=== PATIENT | female | born 1975 | race Caucasian/White ===

== ENCOUNTER → 2018-01-30 | Outpatient (CLI) | payer OTHER | LOC: MC.RAD 07:44 | DX: Z12.31 Encounter for screening mammogram for malignant neoplasm of breast (principal) ==

== ENCOUNTER → 2019-03-05 | Outpatient (CLI) | payer BC | LOC: MC.RAD 07:20 | DX: Z12.31 Encounter for screening mammogram for malignant neoplasm of breast (principal); R92.2 Inconclusive mammogram; N63.21 Unspecified lump in the left breast, upper outer quadrant ==

== ENCOUNTER → 2019-03-07 | Outpatient (CLI) | payer BC | LOC: MC.RAD 12:52 | DX: Z12.31 Encounter for screening mammogram for malignant neoplasm of breast (principal); N60.02 Solitary cyst of left breast ==

== ENCOUNTER → 2020-03-09 | Outpatient (CLI) | payer BC | LOC: MC.RAD 07:11 | DX: Z12.31 Encounter for screening mammogram for malignant neoplasm of breast (principal) ==

== ENCOUNTER → 2021-03-24 | Outpatient (CLI) | payer BC | LOC: MC.RAD 12:46 | DX: Z12.31 Encounter for screening mammogram for malignant neoplasm of breast (principal); N63.20 Unspecified lump in the left breast, unspecified quadrant ==

== ENCOUNTER → 2021-03-26 | Outpatient (CLI) | payer BC | LOC: MC.RAD 15:03 | DX: N60.12 Diffuse cystic mastopathy of left breast (principal); N63.20 Unspecified lump in the left breast, unspecified quadrant ==

== ENCOUNTER → 2022-04-04 | Outpatient (CLI) | payer BC | LOC: MC.RAD 06:55 | DX: Z12.31 Encounter for screening mammogram for malignant neoplasm of breast (principal) ==

== ENCOUNTER 2023-03-24 07:25 | Day surgery (SDC) | payer BC ==
[~2023-03-24] VITALS: Ht 165.1 cm; Wt 60.6 kg
[~2023-03-24 07:25] MED LIST: LR 1,000 ML IV SCH; Ondansetron 4 MG/2 ML VIAL IV PRN
[2023-03-24] MEDS ORDERED: ZESTRIL 10MG10 MG PO (07:55)
[2023-03-24] MEDS ORDERED: FLONASEALLERGY NS (07:56)
[2023-03-24] MEDS ORDERED: SYNTHROID0.075 MG/T PO (07:56)
[2023-03-24] MEDS ORDERED: PREVIDENT5000PLUS DT (07:57)
[2023-03-24] MEDS ORDERED: EPA FISH OIL1 SGL PO (07:58)
[2023-03-24] MEDS ORDERED: CLARITIN 1010 MG/TAB PO (07:58)
[2023-03-24 07:59] VITALS: BP 120/80; PULSE 86; TEMP 98.3
[2023-03-24 09:15] VITALS: BP 106/69; PULSE 88; TEMP 98.2
[2023-03-24 09:30] VITALS: BP 109/85; PULSE 88
[2023-03-24 09:45] VITALS: BP 114/75; PULSE 84
--- NOTE | 2023-03-24 09:50 | NUR ---
0915 RETURNS TO ROOM 6 PER CART. AWAKE, ALERT. RESP UNLABORED. AMBULATES TO RECLINER WITH STANDBY ASSIST. DENIES NAUSEA OR ABD PAIN. VITAL SIGNS OBTAINED. CALL LIGHT AT SIDE 0920 DR. BELTRE HERE TO VISIT WITH PATIENT 0925 TOLERATES PO SODA AND MUFFIN WITHOUT NAUSEA. DISCHARGE INSTRUCTIONS REVIEWED. PATIENT VERBALIZES UNDERSTANDING. 0940 DRESSES SELF
== END 2023-03-24 09:50 | disposition home or self-care (01) ==
LOC: SDCO 07:25
DX: Z12.11 Encounter for screening for malignant neoplasm of colon (principal); Z80.0 Family history of malignant neoplasm of digestive organs
CPT/HCPCS: J2704; J7120

== ENCOUNTER → 2023-04-12 | Outpatient (CLI) | payer BC ==
[~2023-04-12] MED LIST changes: +CLARITIN 1010 MG/TAB PO; +EPA FISH OIL1 SGL PO; +FLONASEALLERGY NS; -LR 1,000 ML IV SCH; -Ondansetron 4 MG/2 ML VIAL IV PRN; +PREVIDENT5000PLUS DT; +SYNTHROID0.075 MG/T PO; +ZESTRIL 10MG10 MG PO
== END ==
LOC: MC.RAD 07:12
DX: Z12.31 Encounter for screening mammogram for malignant neoplasm of breast (principal)